=== PATIENT | male | born 1945 | race African-American/Black ===

== ENCOUNTER 2021-09-17 07:36 | Inpatient (IN) ==
[2021-09-17] MEDS ORDERED: FUROSEMIDE 40 MG/4 ML VIAL IV STA (08:17)
[2021-09-17] MEDS ORDERED: VANCOMYCIN INJ 1,000 MG in SODIUM CHLORIDE 0.9% 250 ML IV STA (08:29)
[2021-09-17 08:54] LABS: Basophils # 0.1 10*3/uL (0.0-0.2); Basophils % 0.9 % (0.0-0.8); Eosinophils # 0.2 10*3/uL (0.0-0.87); Eosinophils % 3.7 % (0.00-10.9); Hematocrit 46.3 VOL% (42.0-52.0); Immature Granulocytes % 0.3 %; Immature Granulocytes Absolute 0.02 #; Lymphocytes # 0.6 10*3/uL (1.4-4.0); Lymphocytes % 11.2 % (21.2-54.2); Mean Corpuscular HGB Conc 32.4 GM/DL (32-36); Mean Corpuscular Volume 94.5 FL (87-102); Mean Platelet Volume 12.7 FL (9.6-12.0); Monocytes # 0.6 10*3/uL (0.11-0.8); Monocytes % 10.6 % (1.7-12.7); Neutrophils % 73.3 % (38.7-73.9); Platelet Count 107 T/CUMM (130-400); Red Cell Distribution Width 16.7 % (9.3-17.3); White Blood Count 5.7 T/CUMM (4-12)
[2021-09-17 09:08] LABS: Albumin 2.7 G/DL (3.4-5.0); Bilirubin,Total 2.6 MG/DL (0.20-1.00); Calcium 8.5 MG/DL (8.5-10.1); Potassium 3.4 MMOL/L (3.5-5.1); Total Protein 6.8 G/DL (6.4-8.2)
[2021-09-17 09:33] LABS: Bilirubin,Urine Negative (Negative); Blood, Urine Negative (Negative); Glucose,Urine (UA) Negative (Negative); Hyaline Casts,Urine 3 /LPF (0-3); Ketones,Urine Negative (Negative); Mucus,Urine Occasional /LPF (Occasional); Nitrite,Urine Negative (Negative); Protein,Urine Negative (Negative); RBC,Urine 2 /HPF (0-4); Urine Appearance Clear (Clear); Urine Color Yellow (Yellow); Urine Specific Gravity 1.015 (1.001-1.035)
[2021-09-17] MEDS ORDERED: DEXTROSE 10% 250 ML BAG IV PRN (11:48)
[2021-09-17] MEDS ORDERED: GLUCAGON 1 MG VIAL IM PRN (11:48)
[2021-09-17] MEDS ORDERED: ONDANSETRON 4 MG/2 ML VIAL IV PRN (11:54)
[2021-09-17] MEDS ORDERED: SIMETHICONE CHEW 125 MG TABLET PO PRN (11:54)
[2021-09-17] MEDS ORDERED: DOCUSATE SODIUM 100 MG CAPSULE PO PRN (11:54)
[2021-09-17] MEDS ORDERED: POTASSIUM CHLORIDE 20 MEQ TABLET PO PRN (12:08)
[2021-09-17] MEDS ORDERED: cefTRIAXone 1,000 MG VIAL IV SCH (12:30)
[2021-09-17] MEDS ORDERED: VANCOMYCIN INJ 1,000 MG in SODIUM CHLORIDE 0.9% 250 ML IV SCH (12:30)
[2021-09-17] MEDS: carvediloL 3.125 MG TABLET PO SCH ×2 (12:57→21:35)
[2021-09-17] MEDS: ASPIRIN EC 81 MG TABLET PO SCH (12:57)
[2021-09-17] MEDS: ISOSORBIDE MONONITRATE 30 MG TABLET PO SCH (12:58)
[2021-09-17] MEDS: ENOXAPARIN 40 MG/0.4 ML SYRINGE SUBCUT SCH (14:02)
[2021-09-17] MEDS: cefTRIAXone 1,000 MG in SODIUM CHLORIDE 0.9% 100 ML IV SCH (14:04)
[2021-09-17] MEDS ORDERED: PNEUMOCOCCAL VACCINE (13 VALENT) 0.5 ML SYRINGE IM ONE (14:56)
[2021-09-17] MEDS ORDERED: ZINC OXIDE PASTE 113 GM TUBE TOP PRN (15:55)
[2021-09-17] MEDS: FUROSEMIDE 40 MG/4 ML VIAL IV SCH (18:18)
[2021-09-17] MEDS: hydrALAZINE 25 MG TABLET PO SCH ×2 (18:21→21:35)
[2021-09-18 04:10] LABS: Basophils % 0.6 % (0.0-0.8); Eosinophils # 0.2 10*3/uL (0.0-0.87); Eosinophils % 2.3 % (0.00-10.9); Hematocrit 40.8 VOL% (42.0-52.0); Hemoglobin 13.3 GM/DL (14.0-18.0); Immature Granulocytes % 0.3 %; Immature Granulocytes Absolute 0.02 #; Lymphocytes # 0.9 10*3/uL (1.4-4.0); Lymphocytes % 13.9 % (21.2-54.2); Mean Corpuscular HGB Conc 32.6 GM/DL (32-36); Mean Corpuscular Volume 92.7 FL (87-102); Mean Platelet Volume 11.7 FL (9.6-12.0); Monocytes # 0.8 10*3/uL (0.11-0.8); Monocytes % 12.4 % (1.7-12.7); Neutrophils % 70.5 % (38.7-73.9); Platelet Count 162 T/CUMM (130-400); Red Cell Distribution Width 16.2 % (9.3-17.3); White Blood Count 6.5 T/CUMM (4-12)
[2021-09-18 04:29] LABS: Albumin 2.3 G/DL (3.4-5.0); Bilirubin,Total 1.5 MG/DL (0.20-1.00); Calcium 7.8 MG/DL (8.5-10.1); Total Protein 5.9 G/DL (6.4-8.2)
[2021-09-18] MEDS ORDERED: POTASSIUM CHLORIDE 20 MEQ TABLET PO ONE ×2 (07:35→11:00)
[2021-09-18] MEDS: carvediloL 3.125 MG TABLET PO SCH ×2 (10:12→20:34)
[2021-09-18] MEDS: FUROSEMIDE 40 MG/4 ML VIAL IV SCH ×2 (10:13→16:32)
[2021-09-18] MEDS: hydrALAZINE 25 MG TABLET PO SCH ×3 (10:13→20:35)
[2021-09-18] MEDS: ASPIRIN EC 81 MG TABLET PO SCH (10:13)
[2021-09-18] MEDS: VANCOMYCIN INJ 1,750 MG in SODIUM CHLORIDE 0.9% 500 ML IV SCH (10:13)
[2021-09-18] MEDS: ISOSORBIDE MONONITRATE 30 MG TABLET PO SCH (10:13)
[2021-09-18] MEDS: cefTRIAXone 1,000 MG in SODIUM CHLORIDE 0.9% 100 ML IV SCH (13:05)
[2021-09-18] MEDS: ENOXAPARIN 40 MG/0.4 ML SYRINGE SUBCUT SCH (13:47)
[2021-09-19 08:18] LABS: Basophils # 0.1 10*3/uL (0.0-0.2); Basophils % 0.8 % (0.0-0.8); Eosinophils # 0.3 10*3/uL (0.0-0.87); Eosinophils % 4.3 % (0.00-10.9); Hematocrit 41.1 VOL% (42.0-52.0); Immature Granulocytes % 0.3 %; Immature Granulocytes Absolute 0.02 #; Lymphocytes # 0.9 10*3/uL (1.4-4.0); Lymphocytes % 14.5 % (21.2-54.2); Mean Corpuscular HGB Conc 31.6 GM/DL (32-36); Mean Corpuscular Volume 95.6 FL (87-102); Mean Platelet Volume 12.3 FL (9.6-12.0); Monocytes # 0.7 10*3/uL (0.11-0.8); Monocytes % 11.4 % (1.7-12.7); Neutrophils % 68.7 % (38.7-73.9); Red Cell Distribution Width 16.6 % (9.3-17.3); White Blood Count 6.3 T/CUMM (4-12)
[2021-09-19 08:21] LABS: Platelet Count 113 T/CUMM (130-400)
[2021-09-19 08:45] LABS: Albumin 2.4 G/DL (3.4-5.0); Bilirubin,Total 1.2 MG/DL (0.20-1.00); Calcium 8.2 MG/DL (8.5-10.1); Potassium 3.5 MMOL/L (3.5-5.1); Total Protein 6.4 G/DL (6.4-8.2)
[2021-09-19] MEDS: FUROSEMIDE 40 MG/4 ML VIAL IV SCH ×2 (09:13→17:03)
[2021-09-19] MEDS: POTASSIUM CHLORIDE 20 MEQ TABLET PO SCH ×2 (09:13→20:22)
[2021-09-19] MEDS: ASPIRIN EC 81 MG TABLET PO SCH (09:14)
[2021-09-19] MEDS: carvediloL 3.125 MG TABLET PO SCH ×2 (09:14→20:21)
[2021-09-19] MEDS: ISOSORBIDE MONONITRATE 30 MG TABLET PO SCH (09:14)
[2021-09-19] MEDS: VANCOMYCIN INJ 1,750 MG in SODIUM CHLORIDE 0.9% 500 ML IV SCH (09:14)
[2021-09-19] MEDS: hydrALAZINE 25 MG TABLET PO SCH ×3 (09:14→20:21)
[2021-09-19] MEDS: cefTRIAXone 1,000 MG in SODIUM CHLORIDE 0.9% 100 ML IV SCH (14:29)
[2021-09-19] MEDS: ENOXAPARIN 40 MG/0.4 ML SYRINGE SUBCUT SCH (16:28)
[2021-09-20 05:53] LABS: Basophils # 0.1 10*3/uL (0.0-0.2); Basophils % 0.8 % (0.0-0.8); Eosinophils # 0.4 10*3/uL (0.0-0.87); Eosinophils % 5.2 % (0.00-10.9); Hemoglobin 13.9 GM/DL (14.0-18.0); Immature Granulocytes % 0.6 %; Immature Granulocytes Absolute 0.04 #; Lymphocytes # 0.9 10*3/uL (1.4-4.0); Lymphocytes % 12.8 % (21.2-54.2); Mean Corpuscular HGB Conc 32.3 GM/DL (32-36); Mean Corpuscular Volume 94.5 FL (87-102); Mean Platelet Volume 12.3 FL (9.6-12.0); Monocytes # 0.7 10*3/uL (0.11-0.8); Monocytes % 9.7 % (1.7-12.7); Neutrophils % 70.9 % (38.7-73.9); Platelet Count 90 T/CUMM (130-400); Red Blood Count 4.55 MC/CUMM (3.8-5.5); Red Cell Distribution Width 16.9 % (9.3-17.3); White Blood Count 7.1 T/CUMM (4-12)
[2021-09-20 06:09] LABS: Albumin 2.4 G/DL (3.4-5.0); Calcium 8.6 MG/DL (8.5-10.1); Osmolality,Calculated 285.3 MOS/KG (273-304); Potassium 4.3 MMOL/L (3.5-5.1); Total Protein 6.5 G/DL (6.4-8.2)
[2021-09-20 06:16] LABS: Platelet Estimate Decreased
[2021-09-20] MEDS: ISOSORBIDE MONONITRATE 30 MG TABLET PO SCH (08:41)
[2021-09-20] MEDS: POTASSIUM CHLORIDE 20 MEQ TABLET PO SCH ×2 (08:42→20:45)
[2021-09-20] MEDS: hydrALAZINE 25 MG TABLET PO SCH ×3 (08:42→20:45)
[2021-09-20] MEDS: FUROSEMIDE 40 MG/4 ML VIAL IV SCH ×2 (08:42→17:56)
[2021-09-20] MEDS: ASPIRIN EC 81 MG TABLET PO SCH (08:42)
[2021-09-20] MEDS: carvediloL 3.125 MG TABLET PO SCH ×2 (08:42→20:45)
[2021-09-20] MEDS: VANCOMYCIN INJ 1,750 MG in SODIUM CHLORIDE 0.9% 500 ML IV SCH (08:43)
[2021-09-20] MEDS: cefTRIAXone 1,000 MG in SODIUM CHLORIDE 0.9% 100 ML IV SCH (14:54)
[2021-09-20] MEDS: SODIUM HYPOCHLORITE 0.25% IRRIG 473 ML BOTTLE TOP SCH (14:54)
[2021-09-20] MEDS: COLLAGENASE OINT 30 GM TUBE TOP SCH (14:54)
[2021-09-20] MEDS: ENOXAPARIN 40 MG/0.4 ML SYRINGE SUBCUT SCH (14:55)
[2021-09-21 05:24] LABS: Basophils # 0.1 10*3/uL (0.0-0.2); Basophils % 1.1 % (0.0-0.8); Eosinophils # 0.5 10*3/uL (0.0-0.87); Eosinophils % 7.5 % (0.00-10.9); Hematocrit 43.2 VOL% (42.0-52.0); Hemoglobin 13.9 GM/DL (14.0-18.0); Immature Granulocytes % 0.4 %; Immature Granulocytes Absolute 0.03 #; Lymphocytes # 0.9 10*3/uL (1.4-4.0); Lymphocytes % 12.9 % (21.2-54.2); Mean Corpuscular HGB Conc 32.2 GM/DL (32-36); Mean Corpuscular Volume 94.9 FL (87-102); Mean Platelet Volume 12.4 FL (9.6-12.0); Monocytes # 0.7 10*3/uL (0.11-0.8); Monocytes % 9.1 % (1.7-12.7); Platelet Count 88 T/CUMM (130-400); Red Blood Count 4.55 MC/CUMM (3.8-5.5); Red Cell Distribution Width 16.7 % (9.3-17.3); White Blood Count 7.2 T/CUMM (4-12)
[2021-09-21 05:26] LABS: Albumin 2.4 G/DL (3.4-5.0); Bilirubin,Total 0.9 MG/DL (0.20-1.00); Calcium 8.3 MG/DL (8.5-10.1); Osmolality,Calculated 287.4 MOS/KG (273-304); Potassium 4.5 MMOL/L (3.5-5.1); Total Protein 6.4 G/DL (6.4-8.2)
[2021-09-21 07:16] LABS: Anisocytosis Slight; Macrocytosis 1+; Platelet Estimate Decreased
[2021-09-21] MEDS ORDERED: SODIUM HYPOCHLORITE 0.25% IRRIG 473 ML BOTTLE TOP SCH (09:00)
[2021-09-21] MEDS: ISOSORBIDE MONONITRATE 30 MG TABLET PO SCH (09:01)
[2021-09-21] MEDS: hydrALAZINE 25 MG TABLET PO SCH ×3 (09:01→20:24)
[2021-09-21] MEDS: carvediloL 3.125 MG TABLET PO SCH ×2 (09:01→20:24)
[2021-09-21] MEDS: ASPIRIN EC 81 MG TABLET PO SCH (09:01)
[2021-09-21] MEDS: POTASSIUM CHLORIDE 20 MEQ TABLET PO SCH ×2 (09:01→20:24)
[2021-09-21] MEDS: FUROSEMIDE 40 MG/4 ML VIAL IV SCH ×2 (09:01→15:34)
[2021-09-21] MEDS: VANCOMYCIN INJ 1,750 MG in SODIUM CHLORIDE 0.9% 500 ML IV SCH (09:04)
[2021-09-21] MEDS: SODIUM HYPOCHLORITE 0.25% IRRIG 473 ML BOTTLE TOP SCH (09:04)
[2021-09-21] MEDS: COLLAGENASE OINT 30 GM TUBE TOP SCH (09:05)
[2021-09-21] MEDS: cefTRIAXone 1,000 MG in SODIUM CHLORIDE 0.9% 100 ML IV SCH (15:33)
[2021-09-21] MEDS: ENOXAPARIN 40 MG/0.4 ML SYRINGE SUBCUT SCH (15:34)
[2021-09-22 05:34] LABS: Basophils # 0.1 10*3/uL (0.0-0.2); Eosinophils # 0.5 10*3/uL (0.0-0.87); Eosinophils % 7.2 % (0.00-10.9); Hematocrit 40.5 VOL% (42.0-52.0); Hemoglobin 12.9 GM/DL (14.0-18.0); Immature Granulocytes % 0.7 %; Immature Granulocytes Absolute 0.05 #; Lymphocytes # 0.9 10*3/uL (1.4-4.0); Lymphocytes % 12.1 % (21.2-54.2); Mean Corpuscular HGB Conc 31.9 GM/DL (32-36); Mean Corpuscular Volume 95.1 FL (87-102); Monocytes # 0.7 10*3/uL (0.11-0.8); Monocytes % 10.1 % (1.7-12.7); Neutrophils % 68.9 % (38.7-73.9); Platelet Count 109 T/CUMM (130-400); Red Blood Count 4.26 MC/CUMM (3.8-5.5); Red Cell Distribution Width 16.5 % (9.3-17.3); White Blood Count 7.1 T/CUMM (4-12)
[2021-09-22 05:58] LABS: Albumin 2.4 G/DL (3.4-5.0); Bilirubin,Total 0.8 MG/DL (0.20-1.00); Calcium 8.7 MG/DL (8.5-10.1); Osmolality,Calculated 284.7 MOS/KG (273-304); Potassium 4.6 MMOL/L (3.5-5.1); Total Protein 6.4 G/DL (6.4-8.2)
[2021-09-22 06:41] LABS: Anisocytosis 2+; Hypochromia Slight; Microcytosis Slight; Ovalocytes Few; Target Cells Few
[2021-09-22 06:42] LABS: Platelet Estimate Adequate
[2021-09-22] MEDS: POTASSIUM CHLORIDE 20 MEQ TABLET PO SCH ×2 (10:11→21:36)
[2021-09-22] MEDS: ASPIRIN EC 81 MG TABLET PO SCH (10:11)
[2021-09-22] MEDS: FUROSEMIDE 40 MG/4 ML VIAL IV SCH ×2 (10:11→17:08)
[2021-09-22] MEDS: ISOSORBIDE MONONITRATE 30 MG TABLET PO SCH (10:11)
[2021-09-22] MEDS: carvediloL 3.125 MG TABLET PO SCH ×2 (10:11→21:36)
[2021-09-22] MEDS: hydrALAZINE 25 MG TABLET PO SCH ×3 (10:11→21:36)
[2021-09-22] MEDS: COLLAGENASE OINT 30 GM TUBE TOP SCH (10:12)
[2021-09-22] MEDS: SODIUM HYPOCHLORITE 0.25% IRRIG 473 ML BOTTLE TOP SCH (10:12)
[2021-09-22] MEDS: VANCOMYCIN INJ 1,750 MG in SODIUM CHLORIDE 0.9% 500 ML IV SCH (10:23)
[2021-09-22] MEDS ORDERED: cefTRIAXone 2,000 MG in SODIUM CHLORIDE 0.9% 100 ML IV SCH (14:00)
[2021-09-22] MEDS: ENOXAPARIN 40 MG/0.4 ML SYRINGE SUBCUT SCH (14:56)
[2021-09-23 05:35] LABS: Basophils # 0.1 10*3/uL (0.0-0.2); Eosinophils # 0.7 10*3/uL (0.0-0.87); Eosinophils % 9.4 % (0.00-10.9); Hematocrit 40.4 VOL% (42.0-52.0); Hemoglobin 12.7 GM/DL (14.0-18.0); Immature Granulocytes % 0.7 %; Immature Granulocytes Absolute 0.05 #; Lymphocytes # 0.8 10*3/uL (1.4-4.0); Lymphocytes % 11.8 % (21.2-54.2); Mean Corpuscular HGB Conc 31.4 GM/DL (32-36); Mean Corpuscular Volume 94.8 FL (87-102); Mean Platelet Volume 11.9 FL (9.6-12.0); Monocytes # 0.8 10*3/uL (0.11-0.8); Monocytes % 11.8 % (1.7-12.7); Neutrophils % 65.3 % (38.7-73.9); Platelet Count 120 T/CUMM (130-400); Red Blood Count 4.26 MC/CUMM (3.8-5.5); Red Cell Distribution Width 16.4 % (9.3-17.3); White Blood Count 6.9 T/CUMM (4-12)
[2021-09-23 06:14] LABS: Albumin 2.5 G/DL (3.4-5.0); Bilirubin,Total 0.8 MG/DL (0.20-1.00); Calcium 9.1 MG/DL (8.5-10.1); Osmolality,Calculated 285.7 MOS/KG (273-304); Potassium 4.6 MMOL/L (3.5-5.1); Total Protein 6.7 G/DL (6.4-8.2)
[2021-09-23] MEDS: FUROSEMIDE 40 MG/4 ML VIAL IV SCH (08:34)
[2021-09-23] MEDS: carvediloL 3.125 MG TABLET PO SCH (08:34)
[2021-09-23] MEDS: POTASSIUM CHLORIDE 20 MEQ TABLET PO SCH (08:34)
[2021-09-23] MEDS: ASPIRIN EC 81 MG TABLET PO SCH (08:35)
[2021-09-23] MEDS: SODIUM HYPOCHLORITE 0.25% IRRIG 473 ML BOTTLE TOP SCH (08:35)
[2021-09-23] MEDS: hydrALAZINE 25 MG TABLET PO SCH (08:35)
[2021-09-23] MEDS: COLLAGENASE OINT 30 GM TUBE TOP SCH (08:35)
[2021-09-23] MEDS: ISOSORBIDE MONONITRATE 30 MG TABLET PO SCH (08:35)
[2021-09-23 12:51] VITALS: BP 138/77
== END 2021-09-23 12:56 | disposition home or self-care (01) | DRG 603 ==
LOC: N.ED 07:36 → N.EDINP 11:49 → SUATTDRO 11:49 → N.EDINP 17:29 → N.TELES 17:36
PROVIDERS: ADMIT Internal Medicine; ATTEND Emergency Medicine

== ENCOUNTER 2021-11-14 19:49 | Inpatient (IN) ==
[2021-11-14 20:17] LABS: Basophils % 0.2 % (0.0-0.8); Hematocrit 38.7 VOL% (42.0-52.0); Hemoglobin 12.3 GM/DL (14.0-18.0); Immature Granulocytes % 0.4 %; Immature Granulocytes Absolute 0.04 #; Lymphocytes # 0.5 10*3/uL (1.4-4.0); Lymphocytes % 4.3 % (21.2-54.2); Mean Corpuscular HGB Conc 31.8 GM/DL (32-36); Mean Corpuscular Volume 94.4 FL (87-102); Mean Platelet Volume 13.4 FL (9.6-12.0); Monocytes # 0.3 10*3/uL (0.11-0.8); Monocytes % 2.6 % (1.7-12.7); Neutrophils % 92.5 % (38.7-73.9); Platelet Count 119 T/CUMM (130-400); Red Cell Distribution Width 16.5 % (9.3-17.3); White Blood Count 10.7 T/CUMM (4-12)
[2021-11-14 20:27] LABS: INR 1.3; PT Patient Result 14.5 SECS (10.1-12.1); Partial Thromboplastin Time 29.9 SECS (23.7-32.9)
[2021-11-14 20:32] LABS: Alanine Aminotransferase 9 U/L (16-61); Albumin 2.5 G/DL (3.4-5.0); Alkaline Phosphatase 86 U/L (45-117); Aspartate Amino Transferase 17 U/L (0-37); Blood Urea Nitrogen 17 MG/DL (7-18); Calcium 8.4 MG/DL (8.5-10.1); Carbon Dioxide 22 MMOL/L (21-32); Chloride 108 MMOL/L (98-107); Glucose 84 MG/DL (74-106); Osmolality,Calculated 273.8 MOS/KG (273-304); Potassium 3.9 MMOL/L (3.5-5.1); Sodium 137 MMOL/L (136-145); Total Protein 6.5 G/DL (6.4-8.2)
[2021-11-14 20:37] LABS: Band Neutrophils 11 % (0-10); Lymphocytes 4 % (20-55); Total Cells Counted 100
[2021-11-14 20:38] LABS: Platelet Estimate Decreased
[2021-11-14] MEDS ORDERED: PIPERACILLIN/TAZOBACTAM 3,375 MG in SODIUM CHLORIDE 0.9% 100 ML IV STA (21:18)
[2021-11-14] MEDS ORDERED: FUROSEMIDE 100 MG/10 ML VIAL IV STA (21:24)
[2021-11-14] MEDS ORDERED: GLUCAGON 1 MG VIAL IM PRN (22:50)
[2021-11-14] MEDS ORDERED: ACETAMINOPHEN 325 MG TABLET PO PRN (22:55)
[2021-11-14] MEDS ORDERED: ONDANSETRON 4 MG/2 ML VIAL IV PRN (22:55)
[2021-11-14] MEDS ORDERED: ALUMINUM/MAGNES/SIMETH MAX STR 30 ML UDCUP PO PRN (22:55)
[2021-11-14] MEDS ORDERED: LACTATED RINGERS 500 ML IV ONE (23:15)
[2021-11-14] MEDS ORDERED: DEXTROSE 10% 250 ML BAG IV PRN (23:28)
[2021-11-14] MEDS ORDERED: VANCOMYCIN INJ 1,750 MG in SODIUM CHLORIDE 0.9% 250 ML IV ONE (23:58)
[2021-11-15] MEDS ORDERED: VANCOMYCIN INJ 1,750 MG in SODIUM CHLORIDE 0.9% 500 ML IV SCH (02:00)
[2021-11-15 03:40] LABS: Basophils % 0.2 % (0.0-0.8); Hemoglobin 12.5 GM/DL (14.0-18.0); Immature Granulocytes % 0.5 %; Immature Granulocytes Absolute 0.05 #; Lymphocytes # 0.5 10*3/uL (1.4-4.0); Lymphocytes % 4.6 % (21.2-54.2); Mean Corpuscular HGB Conc 32.1 GM/DL (32-36); Mean Corpuscular Volume 94.7 FL (87-102); Mean Platelet Volume 12.4 FL (9.6-12.0); Monocytes # 0.4 10*3/uL (0.11-0.8); Monocytes % 3.5 % (1.7-12.7); Neutrophils % 91.2 % (38.7-73.9); Platelet Count 125 T/CUMM (130-400); Red Blood Count 4.12 MC/CUMM (3.8-5.5); Red Cell Distribution Width 16.6 % (9.3-17.3); White Blood Count 10.9 T/CUMM (4-12)
[2021-11-15 03:42] LABS: Bilirubin,Urine Negative (Negative); Blood, Urine Negative (Negative); Glucose,Urine (UA) Negative (Negative); Ketones,Urine Negative (Negative); Nitrite,Urine Negative (Negative); Protein,Urine Negative (Negative); Urine Appearance Clear (Clear); Urine Color Yellow (Yellow); Urine Specific Gravity 1.015 (1.001-1.035); Urine Urobilinogen 0.2 eU/dL (<2.0)
[2021-11-15 03:44] LABS: Bacteria,Urine Occasional /HPF (Few); Mucus,Urine Occasional /LPF (Occasional); RBC,Urine <1 /HPF (0-4)
[2021-11-15 04:26] LABS: Band Neutrophils 4 % (0-10); Lymphocytes 4 % (20-55); Total Cells Counted 100
[2021-11-15 04:27] LABS: Platelet Estimate Adequate
[2021-11-15 04:31] LABS: Osmolality,Calculated 279.4 MOS/KG (273-304); Potassium 3.6 MMOL/L (3.5-5.1)
[2021-11-15] MEDS: PIPERACILLIN/TAZOBACTAM 3,375 MG in SODIUM CHLORIDE 0.9% 100 ML IV SCH ×3 (05:16→20:29)
[2021-11-15] MEDS ORDERED: MAGNESIUM SULF RIDER 4 GM/100 ML PREMIX IV PRN (08:01)
[2021-11-15] MEDS ORDERED: MAGNESIUM SULF RIDER 2 GM/50 ML PREMIX IV PRN (08:01)
[2021-11-15] MEDS ORDERED: POTASSIUM CHLORIDE 20 MEQ TABLET PO PRN (08:01)
[2021-11-15] MEDS ORDERED: ASPIRIN EC 81 MG TABLET PO SCH (09:00)
[2021-11-15] MEDS ORDERED: hydrALAZINE 25 MG TABLET PO SCH (09:00)
[2021-11-15] MEDS ORDERED: ISOSORBIDE MONONITRATE 30 MG TABLET PO SCH (09:00)
[2021-11-15] MEDS ORDERED: carvediloL 3.125 MG TABLET PO SCH (09:00)
[2021-11-15] MEDS ORDERED: PANTOPRAZOLE 40 MG TABLET PO SCH (09:00)
[2021-11-15] MEDS ORDERED: FUROSEMIDE 40 MG/4 ML VIAL IV SCH (09:00)
[2021-11-15] MEDS: DOCUSATE SODIUM 100 MG CAPSULE PO SCH ×2 (09:09→20:32)
[2021-11-15] MEDS: carvediloL 3.125 MG TABLET PO SCH ×2 (09:09→20:47)
[2021-11-15] MEDS: ENOXAPARIN 40 MG/0.4 ML SYRINGE SUBCUT SCH (09:09)
[2021-11-15] MEDS: POTASSIUM CHLORIDE 10 MEQ TABLET PO SCH ×2 (09:09→20:29)
[2021-11-15] MEDS: ASPIRIN EC 81 MG TABLET PO SCH (09:09)
[2021-11-15] MEDS: ISOSORBIDE MONONITRATE 30 MG TABLET PO SCH (09:09)
[2021-11-15] MEDS: FUROSEMIDE 40 MG/4 ML VIAL IV SCH ×2 (09:10→16:31)
[2021-11-16] MEDS: PIPERACILLIN/TAZOBACTAM 3,375 MG in SODIUM CHLORIDE 0.9% 100 ML IV SCH ×3 (04:41→21:35)
[2021-11-16 06:31] LABS: Basophils % 0.2 % (0.0-0.8); Eosinophils # 0.1 10*3/uL (0.0-0.87); Eosinophils % 1.2 % (0.00-10.9); Hematocrit 36.1 VOL% (42.0-52.0); Hemoglobin 11.5 GM/DL (14.0-18.0); Immature Granulocytes % 0.7 %; Immature Granulocytes Absolute 0.07 #; Lymphocytes # 0.8 10*3/uL (1.4-4.0); Lymphocytes % 7.7 % (21.2-54.2); Mean Corpuscular HGB Conc 31.9 GM/DL (32-36); Mean Corpuscular Volume 95.5 FL (87-102); Mean Platelet Volume 12.1 FL (9.6-12.0); Monocytes % 9.2 % (1.7-12.7); Platelet Count 89 T/CUMM (130-400); Red Blood Count 3.78 MC/CUMM (3.8-5.5); Red Cell Distribution Width 16.5 % (9.3-17.3); White Blood Count 10.6 T/CUMM (4-12)
[2021-11-16 06:47] LABS: Calcium 7.7 MG/DL (8.5-10.1); Osmolality,Calculated 280.5 MOS/KG (273-304); Potassium 3.7 MMOL/L (3.5-5.1)
[2021-11-16 06:57] LABS: Risk Ratio 1.63; VLDL Cholesterol 8.2 MG/DL
[2021-11-16 07:08] LABS: Anisocytosis Slight; Band Neutrophils 8 % (0-10); Burr Cells 2+; Eosinophils 2 % (0-10); Lymphocytes 9 % (20-55); Macrocytosis Slight; Platelet Estimate Decreased; Total Cells Counted 100
[2021-11-16] MEDS: FUROSEMIDE 40 MG/4 ML VIAL IV SCH ×2 (09:47→16:58)
[2021-11-16] MEDS: DOCUSATE SODIUM 100 MG CAPSULE PO SCH ×2 (09:48→21:34)
[2021-11-16] MEDS: ENOXAPARIN 40 MG/0.4 ML SYRINGE SUBCUT SCH (09:48)
[2021-11-16] MEDS: carvediloL 3.125 MG TABLET PO SCH ×2 (09:48→21:35)
[2021-11-16] MEDS: SPIRONOLACTONE 25 MG TABLET PO SCH ×2 (09:48→21:35)
[2021-11-16] MEDS: ISOSORBIDE MONONITRATE 30 MG TABLET PO SCH (09:48)
[2021-11-16] MEDS: POTASSIUM CHLORIDE 10 MEQ TABLET PO SCH ×2 (10:00→21:34)
[2021-11-16] MEDS: ASPIRIN EC 81 MG TABLET PO SCH (10:00)
[2021-11-17] MEDS: PIPERACILLIN/TAZOBACTAM 3,375 MG in SODIUM CHLORIDE 0.9% 100 ML IV SCH (04:51)
[2021-11-17 04:57] LABS: Basophils % 0.4 % (0.0-0.8); Eosinophils # 0.1 10*3/uL (0.0-0.87); Eosinophils % 1.5 % (0.00-10.9); Hemoglobin 12.5 GM/DL (14.0-18.0); Immature Granulocytes % 0.8 %; Immature Granulocytes Absolute 0.08 #; Lymphocytes # 0.9 10*3/uL (1.4-4.0); Lymphocytes % 9.5 % (21.2-54.2); Mean Corpuscular HGB Conc 32.1 GM/DL (32-36); Mean Corpuscular Volume 94.9 FL (87-102); Mean Platelet Volume 11.7 FL (9.6-12.0); Monocytes # 0.6 10*3/uL (0.11-0.8); Monocytes % 6.6 % (1.7-12.7); Neutrophils % 81.2 % (38.7-73.9); Platelet Count 91 T/CUMM (130-400); Red Blood Count 4.11 MC/CUMM (3.8-5.5); Red Cell Distribution Width 16.3 % (9.3-17.3); White Blood Count 9.4 T/CUMM (4-12)
[2021-11-17 05:10] LABS: Calcium 8.4 MG/DL (8.5-10.1); Osmolality,Calculated 279.5 MOS/KG (273-304); Potassium 3.6 MMOL/L (3.5-5.1)
[2021-11-17 08:09] LABS: Sedimentation Rate-Westergren 46 MM/HR (0-20)
[2021-11-17] MEDS: ASPIRIN EC 81 MG TABLET PO SCH (08:55)
[2021-11-17] MEDS: POTASSIUM CHLORIDE 10 MEQ TABLET PO SCH ×2 (08:55→21:04)
[2021-11-17] MEDS: ISOSORBIDE MONONITRATE 30 MG TABLET PO SCH (08:55)
[2021-11-17] MEDS: SPIRONOLACTONE 25 MG TABLET PO SCH ×2 (08:55→21:04)
[2021-11-17] MEDS: FUROSEMIDE 40 MG/4 ML VIAL IV SCH ×2 (08:56→16:37)
[2021-11-17] MEDS: carvediloL 3.125 MG TABLET PO SCH ×2 (08:56→16:37)
[2021-11-17] MEDS: DOCUSATE SODIUM 100 MG CAPSULE PO SCH ×2 (08:56→21:05)
[2021-11-17] MEDS: ENOXAPARIN 40 MG/0.4 ML SYRINGE SUBCUT SCH (08:57)
[2021-11-17] MEDS: AMOXICILLIN/CLAV 875 MG TABLET PO SCH (16:37)
[2021-11-18 05:52] LABS: Basophils # 0.1 10*3/uL (0.0-0.2); Basophils % 0.6 % (0.0-0.8); Eosinophils # 0.2 10*3/uL (0.0-0.87); Eosinophils % 2.1 % (0.00-10.9); Hematocrit 36.7 VOL% (42.0-52.0); Hemoglobin 11.8 GM/DL (14.0-18.0); Immature Granulocytes % 1.1 %; Immature Granulocytes Absolute 0.09 #; Lymphocytes # 0.8 10*3/uL (1.4-4.0); Lymphocytes % 10.2 % (21.2-54.2); Mean Corpuscular HGB Conc 32.2 GM/DL (32-36); Mean Corpuscular Volume 94.1 FL (87-102); Mean Platelet Volume 11.2 FL (9.6-12.0); Monocytes # 0.6 10*3/uL (0.11-0.8); Monocytes % 7.9 % (1.7-12.7); Neutrophils % 78.1 % (38.7-73.9); Platelet Count 127 T/CUMM (130-400); Red Cell Distribution Width 16.2 % (9.3-17.3); White Blood Count 8.1 T/CUMM (4-12)
[2021-11-18 06:04] LABS: Calcium 8.1 MG/DL (8.5-10.1); Osmolality,Calculated 279.5 MOS/KG (273-304); Potassium 3.7 MMOL/L (3.5-5.1)
[2021-11-18] MEDS: ENOXAPARIN 40 MG/0.4 ML SYRINGE SUBCUT SCH (09:37)
[2021-11-18] MEDS: SPIRONOLACTONE 25 MG TABLET PO SCH (09:38)
[2021-11-18] MEDS: FUROSEMIDE 40 MG/4 ML VIAL IV SCH ×2 (09:38→16:57)
[2021-11-18] MEDS: ISOSORBIDE MONONITRATE 30 MG TABLET PO SCH (09:38)
[2021-11-18] MEDS: ASPIRIN EC 81 MG TABLET PO SCH (09:38)
[2021-11-18] MEDS: carvediloL 3.125 MG TABLET PO SCH ×2 (09:38→16:56)
[2021-11-18] MEDS: AMOXICILLIN/CLAV 875 MG TABLET PO SCH ×2 (09:38→16:56)
[2021-11-18] MEDS: POTASSIUM CHLORIDE 10 MEQ TABLET PO SCH (09:38)
[2021-11-18] MEDS: DOCUSATE SODIUM 100 MG CAPSULE PO SCH (09:39)
[2021-11-18 16:59] VITALS: BP 122/84
== END 2021-11-18 18:17 | disposition home health service (06) | DRG 602 ==
LOC: EDBD → EDUNIT# → N.ED 19:49 → SUATTDRO 22:50 → N.EDINP 22:50 → N.3E 11-15 00:57
PROVIDERS: ADMIT Family Medicine; ATTEND Internal Medicine Geriatric Medicine

== ENCOUNTER 2022-04-06 13:34 | Inpatient (IN) ==
[2022-04-06] MEDS ORDERED: ONDANSETRON 4 MG/2 ML VIAL IV STA (19:42)
[2022-04-06] MEDS ORDERED: PIPERACILLIN/TAZOBACTAM 3,375 MG in SODIUM CHLORIDE 0.9% 100 ML IV STA (19:42)
[2022-04-06] MEDS ORDERED: MORPHINE 2 MG/1 ML SYRINGE IV STA (19:42)
[2022-04-06] MEDS ORDERED: FUROSEMIDE 100 MG/10 ML VIAL IV STA (19:42)
[2022-04-06 19:59] LABS: Basophils # 0.1 10*3/uL (0.0-0.2); Basophils % 0.8 % (0.0-0.8); Eosinophils # 0.1 10*3/uL (0.0-0.87); Immature Granulocytes % 0.9 %; Immature Granulocytes Absolute 0.13 #; Lymphocytes # 1.2 10*3/uL (1.4-4.0); Lymphocytes % 8.5 % (21.2-54.2); Mean Corpuscular Volume 96.3 FL (87-102); Mean Platelet Volume 10.9 FL (9.6-12.0); Monocytes # 0.8 10*3/uL (0.11-0.8); Monocytes % 5.8 % (1.7-12.7); Platelet Count 182 T/CUMM (130-400); Red Blood Count 4.36 MC/CUMM (3.8-5.5); Red Cell Distribution Width 16.9 % (9.3-17.3); White Blood Count 14.4 T/CUMM (4-12)
[2022-04-06 20:20] LABS: Alanine Aminotransferase 18 U/L (16-61); Albumin 2.5 G/DL (3.4-5.0); Alkaline Phosphatase 121 U/L (45-117); Aspartate Amino Transferase 25 U/L (0-37); Blood Urea Nitrogen 33 MG/DL (7-18); Calcium 8.2 MG/DL (8.5-10.1); Carbon Dioxide 20 MMOL/L (21-32); Chloride 113 MMOL/L (98-107); Glucose 119 MG/DL (74-106); Osmolality,Calculated 288.3 MOS/KG (273-304); Potassium 5.2 MMOL/L (3.5-5.1); Sodium 141 MMOL/L (136-145); Total Protein 7.7 G/DL (6.4-8.2)
[2022-04-06 20:23] LABS: Bacteria,Urine Occasional /HPF (Few); Hyaline Casts,Urine 1 /LPF (0-3); Mucus,Urine Occasional /LPF (Occasional); RBC,Urine 2 /HPF (0-4)
[2022-04-06 20:24] LABS: PT Patient Result 11.4 SECS (10.1-12.1)
[2022-04-06 20:24] LABS: Bilirubin,Urine Small mg/dL (Negative); Blood, Urine Trace mg/dL (Negative); Glucose,Urine (UA) Negative (Negative); Ketones,Urine Negative (Negative); Nitrite,Urine Negative (Negative); Protein,Urine 100 mg/dL (Negative); Urine Appearance Clear (Clear); Urine Color Yellow (Yellow); Urine Specific Gravity 1.033 (1.001-1.035)
[2022-04-06 20:31] LABS: Barbiturates Screen,Urine Negative (Negative); Benzodiazepines Screen,Urine Negative (Negative); Cannabinoid Screen,Urine Negative (Negative); Opiate Screen,Urine Negative (Negative); Phencyclidine Screen,Urine Negative (Negative)
[2022-04-06] MEDS ORDERED: NICOTINE 21 MG/24 HR PATCH TRANSDERM PRN (21:45)
[2022-04-06] MEDS ORDERED: ACETAMINOPHEN 325 MG TABLET PO PRN (21:45)
[2022-04-06] MEDS ORDERED: hydrALAZINE 20 MG/1 ML VIAL IV PRN (21:45)
[2022-04-06] MEDS ORDERED: MORPHINE 2 MG/1 ML SYRINGE IV PRN (21:45)
[2022-04-06] MEDS ORDERED: ONDANSETRON 4 MG/2 ML VIAL IV PRN (21:45)
[2022-04-06] MEDS ORDERED: ENOXAPARIN 100 MG/ML SYRINGE SUBCUT STA (22:23)
[2022-04-06] MEDS: VANCOMYCIN INJ 1,500 MG in SODIUM CHLORIDE 0.9% 500 ML IV SCH (23:24)
[2022-04-07 01:29] LABS: Basophils # 0.1 10*3/uL (0.0-0.2); Basophils % 0.5 % (0.0-0.8); Eosinophils # 0.1 10*3/uL (0.0-0.87); Eosinophils % 0.6 % (0.00-10.9); Immature Granulocytes % 0.6 %; Lymphocytes # 0.9 10*3/uL (1.4-4.0); Lymphocytes % 5.1 % (21.2-54.2); Mean Corpuscular HGB Conc 30.8 GM/DL (32-36); Mean Platelet Volume 10.7 FL (9.6-12.0); Monocytes # 1.1 10*3/uL (0.11-0.8); Monocytes % 6.6 % (1.7-12.7); Neutrophils % 86.6 % (38.7-73.9); Platelet Count 184 T/CUMM (130-400); Red Blood Count 4.02 MC/CUMM (3.8-5.5); Red Cell Distribution Width 16.9 % (9.3-17.3); White Blood Count 17.1 T/CUMM (4-12)
[2022-04-07] MEDS ORDERED: SODIUM CHLORIDE 0.9% 500 ML IV ONE (01:30)
[2022-04-07 02:34] LABS: Calcium 8.7 MG/DL (8.5-10.1); Osmolality,Calculated 285.4 MOS/KG (273-304)
[2022-04-07] MEDS ORDERED: SODIUM BICARBONATE 50 MEQ/50 ML VIAL IV ONE (04:27)
[2022-04-07 04:51] LABS: Arterial Base Excess iSTAT -7 MMOL/L (-2.5-2.5); Arterial Bicarbonate iSTAT 16.4 MMOL/L (20-26); Arterial O2 Saturation iSTAT 96 % (95-100); Arterial PCO2 iSTAT 26 MM HG (35-48); Arterial PO2 iSTAT 77 MM HG (80-95); Arterial Total CO2 iSTAT 17 MMO/L (23-27); Arterial pH iSTAT 7.412 (7.35-7.45)
[2022-04-07] MEDS ORDERED: SODIUM BICARB INJ 50 MEQ in DEXTROSE 5% 50 ML IV SCH (05:30)
[2022-04-07] MEDS ORDERED: SODIUM BICARB INJ 50 MEQ in DEXTROSE 5% 50 ML IV ONE (05:30)
[2022-04-07] MEDS: PIPERACILLIN/TAZOBACTAM 3,375 MG in SODIUM CHLORIDE 0.9% 100 ML IV SCH ×3 (06:31→21:38)
[2022-04-07] MEDS: PANTOPRAZOLE 40 MG TABLET PO SCH (09:58)
[2022-04-07] MEDS: SKIN HEALING OINT (AQUAPHOR) 50 GM TUBE TOP SCH (09:59)
[2022-04-07] MEDS: carvediloL 3.125 MG TABLET PO SCH ×2 (11:30→21:37)
[2022-04-07] MEDS: ALBUTEROL/IPRATROPIUM 3 ML NEB RESP TX SCH ×2 (14:37→20:15)
[2022-04-07] MEDS: SODIUM CHLORIDE 0.45% 1,000 ML IV SCH (16:27)
[2022-04-07] MEDS: HEPARIN 5,000 UNIT/1 ML VIAL SUBCUT SCH (21:38)
[2022-04-08] MEDS: VANCOMYCIN INJ 1,500 MG in SODIUM CHLORIDE 0.9% 500 ML IV SCH (00:02)
[2022-04-08] MEDS: ALBUTEROL/IPRATROPIUM 3 ML NEB RESP TX SCH ×4 (01:00→18:50)
[2022-04-08] MEDS: PIPERACILLIN/TAZOBACTAM 3,375 MG in SODIUM CHLORIDE 0.9% 100 ML IV SCH ×3 (03:13→20:40)
[2022-04-08 05:17] LABS: Basophils # 0.1 10*3/uL (0.0-0.2); Basophils % 0.7 % (0.0-0.8); Eosinophils # 0.2 10*3/uL (0.0-0.87); Eosinophils % 1.9 % (0.00-10.9); Hematocrit 33.2 VOL% (42.0-52.0); Hemoglobin 10.4 GM/DL (14.0-18.0); Immature Granulocytes % 2.1 %; Immature Granulocytes Absolute 0.23 #; Lymphocytes # 1.2 10*3/uL (1.4-4.0); Lymphocytes % 11.5 % (21.2-54.2); Mean Corpuscular HGB Conc 31.3 GM/DL (32-36); Mean Corpuscular Volume 95.4 FL (87-102); Mean Platelet Volume 10.9 FL (9.6-12.0); Monocytes % 9.2 % (1.7-12.7); Neutrophils % 74.6 % (38.7-73.9); Platelet Count 129 T/CUMM (130-400); Red Blood Count 3.48 MC/CUMM (3.8-5.5); Red Cell Distribution Width 16.8 % (9.3-17.3); White Blood Count 10.8 T/CUMM (4-12)
[2022-04-08 05:40] LABS: Calcium 8.2 MG/DL (8.5-10.1); Osmolality,Calculated 285.7 MOS/KG (273-304); Potassium 4.6 MMOL/L (3.5-5.1)
[2022-04-08] MEDS: SODIUM CHLORIDE 0.45% 1,000 ML IV SCH (05:50)
[2022-04-08] MEDS: carvediloL 3.125 MG TABLET PO SCH ×2 (09:52→20:40)
[2022-04-08] MEDS: ASPIRIN EC 81 MG TABLET PO SCH (09:52)
[2022-04-08] MEDS: SKIN HEALING OINT (AQUAPHOR) 50 GM TUBE TOP SCH (09:52)
[2022-04-08] MEDS: PANTOPRAZOLE 40 MG TABLET PO SCH (09:53)
[2022-04-08] MEDS: NICOTINE 21 MG/24 HR PATCH TRANSDERM SCH (09:53)
[2022-04-08] MEDS: HEPARIN 5,000 UNIT/1 ML VIAL SUBCUT SCH ×2 (09:53→20:41)
[2022-04-09] MEDS: ALBUTEROL/IPRATROPIUM 3 ML NEB RESP TX SCH ×3 (00:10→12:21)
[2022-04-09] MEDS: SODIUM CHLORIDE 0.45% 1,000 ML IV SCH (02:22)
[2022-04-09] MEDS: PIPERACILLIN/TAZOBACTAM 3,375 MG in SODIUM CHLORIDE 0.9% 100 ML IV SCH ×2 (04:28→11:07)
[2022-04-09 05:59] LABS: Basophils % 0.3 % (0.0-0.8); Eosinophils # 0.5 10*3/uL (0.0-0.87); Eosinophils % 4.5 % (0.00-10.9); Hematocrit 33.7 VOL% (42.0-52.0); Hemoglobin 10.5 GM/DL (14.0-18.0); Immature Granulocytes % 5.4 %; Immature Granulocytes Absolute 0.57 #; Lymphocytes # 1.6 10*3/uL (1.4-4.0); Lymphocytes % 15.4 % (21.2-54.2); Mean Corpuscular HGB Conc 31.2 GM/DL (32-36); Mean Corpuscular Volume 96.3 FL (87-102); Mean Platelet Volume 10.4 FL (9.6-12.0); Monocytes % 9.5 % (1.7-12.7); Neutrophils % 64.9 % (38.7-73.9); Platelet Count 91 T/CUMM (130-400); Red Cell Distribution Width 16.9 % (9.3-17.3); White Blood Count 10.7 T/CUMM (4-12)
[2022-04-09 06:16] LABS: Calcium 8.4 MG/DL (8.5-10.1); Osmolality,Calculated 286.7 MOS/KG (273-304)
[2022-04-09 06:42] LABS: Eosinophils 9 % (0-10); Hypochromia Slight; Lymphocytes 15 % (20-55); Microcytosis Slight; Platelet Estimate Decreased; Total Cells Counted 100
[2022-04-09] MEDS: carvediloL 3.125 MG TABLET PO SCH (08:49)
[2022-04-09] MEDS: PANTOPRAZOLE 40 MG TABLET PO SCH (08:50)
[2022-04-09] MEDS: ASPIRIN EC 81 MG TABLET PO SCH (08:50)
[2022-04-09] MEDS: SKIN HEALING OINT (AQUAPHOR) 50 GM TUBE TOP SCH (08:52)
[2022-04-09] MEDS: NICOTINE 21 MG/24 HR PATCH TRANSDERM SCH (08:52)
[2022-04-09] MEDS: HEPARIN 5,000 UNIT/1 ML VIAL SUBCUT SCH (08:52)
[2022-04-09] MEDS ORDERED: SODIUM BICARBONATE 650 MG TABLET PO SCH (09:00)
[2022-04-09 12:23] VITALS: BP 133/79
[2022-04-10] MEDS ORDERED: CLOPIDOGREL 75 MG TABLET PO SCH (09:00)
[2022-04-10] MEDS ORDERED: ROSUVASTATIN 20 MG TABLET PO SCH (09:00)
== END 2022-04-09 13:14 | disposition home health service (06) | DRG 299 ==
LOC: N.ED 13:34 → N.EDINP 21:45 → SUATTDRO 21:45 → N.EDINP 23:29 → N.TELEN 23:45
PROVIDERS: ADMIT Hospitalist; ATTEND Internal Medicine Geriatric Medicine